=== PATIENT | male | born 1955 | race Native Hawaiian/Other Pacific Islander ===

== ENCOUNTER 2016-09-27 11:56 | Outpatient (CLI) | payer MEDICARE, OTHER | END 2016-09-27 11:57 | disposition home or self-care (01) | LOC: LABHHL 11:56 | PROVIDERS: ATTEND Internal Medicine | DX: J32.8 Other chronic sinusitis (principal); G25.0 Essential tremor; E55.9 Vitamin D deficiency, unspecified; H92.03 Otalgia, bilateral; M81.0 Age-related osteoporosis without current pathological fracture; Z79.899 Other long term (current) drug therapy; F17.200 Nicotine dependence, unspecified, uncomplicated | CPT/HCPCS: 36415; 80061; 83036 ==

== ENCOUNTER 2017-03-18 23:45 | Emergency (ER) | payer MEDICARE, OTHER ==
[2017-03-19] MEDS ORDERED: REGLAN IV ONE (03:10)
[2017-03-19] MEDS ORDERED: BENADRYL IV ONE (03:10)
[2017-03-19] MEDS ORDERED: TYLENOL PO ONE (03:10)
[2017-03-19 03:44] LABS: Basophils # (Auto) 0.1 K/mm3 (0.0-0.1); Basophils % (Auto) 1.1 % (0.0-1.8); Eosinophils # (Auto) 0.1 K/mm3 (0.0-0.4); Eosinophils % (Auto) 1.7 % (0.0-4.3); Hematocrit 50.3 % (35.5-45.6); Hemoglobin 17.2 gm/dl (11.8-15.2); Lymphocytes # (Auto) 1.8 K/mm3 (1.2-5.4); Lymphocytes % (Auto) 20.8 % (13.4-35.0); Mean Corpuscular HGB Conc 34 % (32-34); Mean Corpuscular Hemoglobin 33 pg (28-32); Mean Corpuscular Volume 95 fl (84-94); Monocytes # (Auto) 0.6 K/mm3 (0.0-0.8); Monocytes % (Auto) 7.2 % (0.0-7.3); Platelet Count 301 K/mm3 (140-440); Red Blood Count 5.27 M/mm3 (3.65-5.03); Red Cell Distribution Width 14.5 % (13.2-15.2)
[2017-03-19 03:52] LABS: BUN/Creatinine Ratio 10; Blood Urea Nitrogen 7 mg/dL (9-20); Calcium 9.1 mg/dL (8.4-10.2); Hemolysis Index 12
[2017-03-19 04:52] VITALS: BP 109/69
--- NOTE | 2017-03-19 05:26 | Cat Scan Report ---
FINAL REPORT EXAM: CT HEAD/BRAIN WO CON HISTORY: headache TECHNIQUE: Routine axial imaging was obtained the brain without IV contrast. Comparison is made to the study of 12/26/2014. FINDINGS: There [id number] atrophy. There is no evidence of acute stroke or hemorrhage. The ventricular system is appropriate in size and is symmetric. The visualized sinuses are clear. The mastoid air cells are well pneumatized. The calvarium appears intact. IMPRESSION: [id number] atrophy. No evidence of acute stroke or hemorrhage.
[2017-03-19] MEDS ORDERED: NORCO 5/325 PO ONE (06:06)
--- NOTE | 2017-03-19 06:30 | Emergency Department Report ---
Chief Complaint: Headache Stated Complaint: HEADACHE - HPI History of Present Illness: 61-year-old male past medical history migraines, tremors, cerebral and cerebellar atrophy presents with complaint of severe left-sided throbbing persistent headache. Patient states he has been taking sumatriptan and several other medicines for his migraines however this migraine is worse than the others. Similar in quality but more intense. Patient is awake alert and oriented 3. States he has several neurologists he follows with for this issue. States that migraine was unbearable at home earlier. Patient fully lucid. States he has severe ataxia secondary to his cerebellar atrophy and walks with a walker - ROS Review of Systems: History of cerebellar atrophy and migraines - Exam Vital Signs: Vital Signs 03/19/17 03/19/17 01:39 04:51 Temperature 98 F 98.5 F Pulse Rate 73 60 Respiratory 16 17 Rate Blood Pressure 118/80 Blood Pressure 109/69 [Right] O2 Sat by Pulse 99 99 Oximetry Physical Exam: Awake alert and oriented, extraocular movements intact, gait slightly unstable. Intentional tremor while patient is moving his upper limbs MSE screening note: Focused history and physical exam performed. Due to findings the following was ordered: Screening Assessment/Plan/Differential Dx: Headache, acute on chronic migraine 1- This initial assessment/diagnostic orders/clinical plan/ treatment(s) is/are subject to change based on pt's health status, clinical progression and re- assessment by fellow clinical providers in the ED. Further treatment and workup at subsequent clinical provers discretion. Patient/guardians urged not to elope from ED as their condition may be serious if not clinically assessed and managed. 2-CT head consistent with cerebral atrophy. Patient does have some neurological abnormalities on initial screening physical 3-will defer further management to the ED attending. CT noncontrast head shows atrophy but no other significant changes. Will any need for defer further imaging to ED attending 4-patient given dose of Reglan and Benadryl Tylenol with minimal to no relief of his headache ED Medical Decision Making - Lab Data Result diagrams: 03/19/17 03:23 03/19/17 03:23 ED Disposition for MSE Condition: Stable Referrals: MIGDALIA GREENBERG MD [Primary Care Provider] - 3-5 Days
[2017-03-19] MEDS ORDERED: TORADOL IV ONE (07:37)
[2017-03-19] MEDS ORDERED: MORPHINE IV ONE (07:37)
--- NOTE | 2017-03-19 07:38 | Emergency Department Report ---
ED Headache HPI - General Chief Complaint: Headache Stated Complaint: HEADACHE Time Seen by Provider: 03/19/17 06:53 Source: patient - History of Present Illness Initial Comments: Patient is a 61-year-old gentleman who is complaining of migraine. Patient states he has chronic migraines and is is in the care of a neurologist at [place]. Patient states that the last medication he was prescribed 2 is unable to get secondary to cost. Patient is here for pain relief. Patient states the headache is generalized with nausea. This is not the worst headache he's ever had. This is very consistent with his history of migraines. Patient only takes Ultram for headaches but this does not seem to be working. Timing/Duration: 1 week Quality: mild Head Injury Location: global Recent Head Trauma: no recent headache/trauma, frequent headaches, chronic headaches Associated Symptoms: denies symptoms, nausea/vomiting. denies: confusion, fatigue, facial pain, fever/chills, loss of consciousness, nasal congestion, nasal drainage, seizures, sinus infection, stiff neck, vision changes, weakness Allergies/Adverse Reactions: Allergies No Known Allergies Allergy (Verified 11/11/13 20:07) Home Medications: Ambulatory Orders Atenolol [Tenormin] 25 mg PO DAILY 11/11/13 Mirtazapine 15 mg PO HS 03/19/17 Sumatriptan 100 mg PO BID 03/19/17 traMADol 50 mg PO TID PRN 03/19/17 ED Review of Systems ROS: Stated complaint: HEADACHE Other details as noted in HPI Comment: All other systems reviewed and negative ED Past Medical Hx - Past Medical History Hx Hypertension: Yes Hx CVA: No Hx Heart Attack/AMI: No Hx Congestive Heart Failure: No Hx Diabetes: No Hx Deep Vein Thrombosis: No Hx Pulmonary Embolism: No Hx GERD: No Hx Liver Disease: No Hx Renal Disease: No Hx Sickle Cell Disease: No Hx Arthritis: Yes Hx Headaches / Migraines: Yes (Migraines) Hx Seizures: No Hx Kidney Stones: No Hx Psychiatric Treatment: No Hx Asthma: No Hx COPD: No Hx Tuberculosis: No Hx Dementia: No Hx HIV: No Additional medical history: Multiple Systems Atrophy-cerebellum / MVP / osteoporosis/ Essential Tremors - Surgical History Hx Coronary Stent: No Hx Open Heart Surgery: No Hx Pacemaker: No Hx Internal Defibrillator: No Hx Cholecystectomy: No Hx Appendectomy: No Hx Breast Surgery: No Additional Surgical History: back / toe - Social History Smoking Status: Current Some Day Smoker Substance Use Type: None - Medications Home Medications: Home Medications Medication Instructions Recorded Confirmed Last Taken Type Atenolol [Tenormin] 25 mg PO DAILY 11/11/13 03/19/17 11/11/13 History 1 Mirtazapine 15 mg PO HS 03/19/17 03/19/17 Unknown History Sumatriptan 100 mg PO BID 03/19/17 03/19/17 Unknown History traMADol 50 mg PO TID PRN 03/19/17 03/19/17 Unknown History ED Physical Exam - General Limitations: Physical Limitation General appearance: alert, in no apparent distress, other (patient smiling and in no acute distress) - Head Head exam: Present: atraumatic, normocephalic - Eye Eye exam: Present: normal appearance - ENT ENT exam: Present: mucous membranes moist - Neck Neck exam: Present: normal inspection - Respiratory Respiratory exam: Present: normal lung sounds bilaterally. Absent: respiratory distress - Cardiovascular Cardiovascular Exam: Present: regular rate, normal rhythm. Absent: systolic murmur, diastolic murmur, rubs, gallop - GI/Abdominal GI/Abdominal exam: Present: soft, normal bowel sounds - Rectal Rectal exam: Present: deferred - Extremities Exam Extremities exam: Present: normal inspection - Back Exam Back exam: Present: normal inspection - Neurological Exam Neurological exam: Present: alert, oriented X3 - Psychiatric Psychiatric exam: Present: normal affect, normal mood - Skin Skin exam: Present: warm, dry, intact, normal color. Absent: rash ED Course Vital Signs 03/19/17 03/19/17 01:39 04:51 Temperature 98 F 98.5 F Pulse Rate 73 60 Respiratory 16 17 Rate Blood Pressure 118/80 Blood Pressure 109/69 [Right] O2 Sat by Pulse 99 99 Oximetry ED Medical Decision Making - Lab Data Result diagrams: 03/19/17 03:23 03/19/17 03:23 - Radiology Data Radiology results: report reviewed Mild to moderate atrophy globally no acute process Critical care attestation.: If time is entered above; I have spent that time in minutes in the direct care of this critically ill patient, excluding procedure time. ED Disposition Clinical Impression: Chronic migraine Disposition: DC-01 TO HOME OR SELFCARE Is pt being admited?: No Does the pt Need Aspirin: No Condition: Fair Instructions: Migraine Headache (ED) Referrals: MIGDALIA GREENBERG MD [Primary Care Provider] - 3-5 Days
== END 2017-03-19 07:55 | disposition home or self-care (01) ==
LOC: ED 23:45
DX: G43.809 Other migraine, not intractable, without status migrainosus (principal); I10 Essential (primary) hypertension; M19.90 Unspecified osteoarthritis, unspecified site; F17.200 Nicotine dependence, unspecified, uncomplicated
CPT/HCPCS: 36415; 70450; 80048; 85025; 96374; 96375; 99284; J1200; J1885; J2270; J2765

== ENCOUNTER 2017-06-26 10:33 | Outpatient (CLI) | payer MEDICARE ==
--- NOTE | 2017-06-26 12:42 | XRay Report ---
LUMBAR SPINE RADIOGRAPHS INDICATION: Spinal stenosis, dorsalgia, low back pain. COMPARISON: 06/24/2008. FINDINGS: AP, lateral and oblique lumbar spine radiographs, 5 images again demonstrate normal vertebral body stature and alignment. L5-S1 disc narrowing possible. Nonobstructive bowel gas pattern. Clear visualized lung bases. Possible osteopenia. Intact SI and hip joints. CONCLUSION: No acute radiographic abnormality with possible L5-S1 disc narrowing. Thank you for the opportunity to participate in this patient's care.
--- NOTE | 2017-06-26 12:45 | XRay Report ---
THORACIC SPINE RADIOGRAPHS INDICATION: Back pain. COMPARISON: 06/24/2008 CXR. FINDINGS: AP, lateral and swimmer's view to evaluate thoracic spine demonstrate preserved vertebral body stature and alignment. Slight mid thoracic spine degenerative spurring. Possible osteopenia. Normal disc heights. Symmetric pedicles. Intact costovertebral articulations. No abnormal paraspinal density. Normal imaged heart. Clear, well-expanded imaged lungs. Cervical spondylosis also noted. CONCLUSION: No acute thoracic spine radiographic abnormality with few other findings, as described. Thank you for the opportunity to participate in this patient's care.
== END 2017-06-26 10:34 | disposition home or self-care (01) ==
LOC: XRAY 10:33
PROVIDERS: ATTEND Nurse Practitioner
DX: M53.84 Other specified dorsopathies, thoracic region (principal); M47.892 Other spondylosis, cervical region; M54.5 Low back pain
CPT/HCPCS: 72070; 72110